=== PATIENT | male | born 1965 | race Caucasian/White ===

== ENCOUNTER 2017-05-06 19:23 | Emergency (ER) | payer SELFPAY ==
[~2017-05-06] VITALS: Ht 162.6 cm; Wt 70.0 kg
[2017-05-06] MEDS ORDERED: KETOROLAC 30MG/ML VIAL IV STA (22:50)
[2017-05-06] MEDS ORDERED: ONDANSETRON HCL 4MG/2ML VIAL IV STA (22:50)
[2017-05-06] MEDS ORDERED: SODIUM CHLORIDE 0.9% 1,000 ML IV ONE (22:50)
[2017-05-06] MEDS ORDERED: FAMOTIDINE 20MG/2ML VIAL IV STA (22:50)
[2017-05-06 23:41] LABS: CHLORIDE 102 mEq/L (98-107)
[2017-05-06 23:48] LABS: BASOPHILS % 0.2 % (0.0-2.0); EOSINOPHILS % 0.8 % (0.0-5.0); HEMATOCRIT. 31.9 % (42.0-52.0); HEMOGLOBIN. 11.3 g/dL (14.0-18.0); LYMPHOCYTES % 29.5 % (20.0-50.0); MEAN CORPUSCULAR HEMOGLOBIN 30.1 pg (28.0-32.0); MEAN CORPUSCULAR VOLUME 84.6 fL (80.0-94.0); MEAN PLATELET VOLUME 8.3 fl (7.4-10.4); MONOCYTES % 8.3 % (2.0-8.0); NEUTROPHILS % 61.2 % (40.0-76.0); PLATELET 171 x1000/uL (130-400); RED BLOOD CELL COUNT 3.77 mill/uL (4.7-6.1); RED CELL DISTRIBUTION WIDTH 12.7 % (11.6-14.6)
[2017-05-06 23:51] LABS: CARBON DIOXIDE 30 mEq/L (21-32); ETHANOL BLOOD < 10 mg/dL
[2017-05-06 23:59] LABS: CLARITY URINE CLEAR (CLEAR); COLOR URINE YELLOW (YELLOW); GLUCOSE URINE NEGATIVE (NEGATIVE); KETONES URINE TRACE (NEGATIVE); LEUKOCYTE ESTERASE URINE NEGATIVE (NEGATIVE); NITRITE URINE NEGATIVE (NEGATIVE); OCCULT BLOOD URINE NEGATIVE (NEGATIVE); PH URINE 8.5 (4.5-8.0); PROTEIN URINE NEGATIVE (NEGATIVE); SPECIFIC GRAVITY URINE 1.009 (1.005-1.030); UROBILINOGEN URINE 0.2 E.U./dL (0.2-1.0)
[2017-05-07 01:37] VITALS: BP 149/85
== END 2017-05-07 01:45 | disposition home or self-care (01) ==
LOC: ER 19:23
DX: K52.9 Noninfective gastroenteritis and colitis, unspecified (principal); E11.9 Type 2 diabetes mellitus without complications; Z88.0 Allergy status to penicillin
CPT/HCPCS: 36415; 80053; 81003; 83690; 85025; 96361; 96374; 96375; 99284; G0482; J1885; J2405; J3490; J7030; Z7610